=== PATIENT | male | born 1975 | race Caucasian/White ===

== ENCOUNTER → 2017-02-05 | Outpatient (CLI) | payer SELFPAY ==
--- NOTE | 2017-02-06 07:55 | XR ---
EXAMINATION TYPE: XR cervical spine comp DATE OF EXAM: 02/05/2017 3:58 PM TECHNIQUE: Frontal, lateral, oblique, and open mouth view of the cervical spine are obtained. HISTORY: [id number] LBP,fall,cervicalgia tingling down arms after fall injury 2 weeks ago pe r patient. COMPARISON: None FINDINGS: The cervical spine is visualized in its entirety from C1 thru the top of T1 level, it is s traightened in alignment without evidence of acute fracture or dislocation. There is slight grade 1 retrolisthesis of C4 on C5 and more prominent right 1 retrolisthesis C5 on C6. The pre-vertebral soft tissue appears within normal limits. The C1-C2 articulation is within normal limits on the open ginger th view. Vertebral body heights are maintained. There is moderate disc space narrowing C2-C3 level. There is m ild to moderate disc space narrowing with mild spurring C5-C6 level. Mild disc space narrowing C6-C7 level is seen. The oblique images are within normal limits. Some calcification left mid neck is felt to reflect mild carotid bulb atherosclerotic change. IMPRESSION: Straightening of cervical spine with multilevel spondylolisthesis mid cervical levels and multilevel degenerative changes as detailed above.
--- NOTE | 2017-02-06 07:57 | XR ---
EXAMINATION TYPE: XR lumbosacral spine min 4V DATE OF EXAM: 02/05/2017 3:58 PM CLINICAL HISTORY: Low back pain down legs after fall injury 2 weeks ago. TECHNIQUE: Frontal, lateral, and oblique images of the lumbar spine are obtained. COMPARISON: Lumbar spine x-ray April 16, 2013. FINDINGS: There are 5 lumbar type vertebral bodies identified. There is redemonstration of single p ars defect right L5 level. There is stable slight grade 1 retrolisthesis of L4 on L5. The lumbar spin e shows satisfactory alignment without evidence of acute fracture or dislocation. Vertebral body heig hts and disk space heights are within normal limits. There is redemonstration of spina bifida defect s L5 level. There is redemonstration of mild spurring anteriorly involving superior L4 and L5 endplat es most prominent L3 endplate. The oblique images appear within normal limits. Some vascular calcific ation overlying abdominal aorta is redemonstrated. IMPRESSION: Pars defect with stable slight grade 1 retrolisthesis L4-L5 redemonstrated. Other finding s as noted above. No significant change from prior.
== END | disposition home or self-care (01) ==
LOC: RADXRYALE 15:34
PROVIDERS: ATTEND Family Medicine
DX: M43.8X2 Other specified deforming dorsopathies, cervical region (principal); M50.31 Other cervical disc degeneration, high cervical region
CPT/HCPCS: 72050; 72110

== ENCOUNTER → 2018-06-17 | Outpatient (CLI) | payer OTHER ==
--- NOTE | 2018-06-17 09:31 | XR ---
EXAMINATION TYPE: XR elbow complete LT DATE OF EXAM: 06/17/2018 CLINICAL HISTORY: pain TECHNIQUE: Frontal, lateral and oblique images of the left elbow are obtained. COMPARISON: None. FINDINGS: There is no acute fracture/dislocation evident of the elbow. No abnormal fat pad signs ar e seen. The overlying soft tissue appears unremarkable. IMPRESSION: There is no acute fracture or dislocation of the elbow. ICD 10 NO FRACTURE, INITIAL EVALUATION
== END | disposition home or self-care (01) ==
LOC: RADXRYALE 08:35
PROVIDERS: ATTEND Family Medicine
DX: M25.522 Pain in left elbow (principal)

== ENCOUNTER → 2019-11-21 | Outpatient (CLI) | payer OTHER ==
--- NOTE | 2019-11-21 13:49 | CT ---
EXAMINATION TYPE: CT chest wo con DATE OF EXAM: 11/21/2019 COMPARISON: None HISTORY: difficulty breathing, wheezing CT DLP: 503.4 mGycm, Automated exposure control for dose reduction was used. CONTRAST: Performed injected with 0 mL of Isovue 300. TECHNIQUE: Axial images were obtained at 5 mm thick sections. Reconstructed images are reviewed on [employer] computer in the coronal plane. FINDINGS: Portion of the thyroid visualized is normal. No suspicious lung nodules or focal infiltrates are present. No enlarged mediastinal or hilar adenopathy is evident. The ascending aorta diameter at the level o f the main pulmonary artery is 3.6 cm. The main pulmonary artery diameter at the bifurcation is 2.5 cm. Minimal coronary artery calcifications present. Limited CT sections are obtained through the upper abdomen. Abdomen is essentially unremarkable. IMPRESSIONS: 1. No acute pulmonary process.
== END | disposition home or self-care (01) ==
LOC: RADCTMAIN 13:00
PROVIDERS: ATTEND Family Medicine
DX: R91.8 Other nonspecific abnormal finding of lung field (principal); R06.02 Shortness of breath; R06.2 Wheezing
CPT/HCPCS: 71250

== ENCOUNTER → 2021-07-11 | Outpatient (CLI) | payer BC ==
--- NOTE | 2021-07-11 18:24 | XR ---
EXAMINATION TYPE: XR knee complete LT DATE OF EXAM: 07/11/2021 COMPARISON: None HISTORY: 46-year-old male [id number] LT KNEE PAIN TECHNIQUE: 3 views FINDINGS: No acute fracture, subluxation, or dislocation. There is a moderate knee joint effusion noted. Extens or mechanism appears intact. IMPRESSION: No acute osseous abnormality seen. However, there is a moderate knee joint effusion. If pain persists and concern for internal derangement, MRI can be performed.
== END | disposition home or self-care (01) ==
LOC: RADXRYALE 12:08
PROVIDERS: ATTEND Family Medicine
DX: M25.462 Effusion, left knee (principal)

== ENCOUNTER 2021-12-21 14:26 | Emergency (ER) | payer BC ==
[2021-12-21 14:30] VITALS: TEMP 97.6
[2021-12-21] MEDS ORDERED: MAG HYDROX/AL HYDROX/SIMETH 30 ML, HYOSCYAMINE ELIXIR 10 ML, LIDOCAINE VISCOUS 2% 10 ML PO STA ×3 (15:07)
--- NOTE | 2021-12-21 15:08 | ED ---
General Adult HPI - General Chief complaint: Chest Pain Stated complaint: abnormal EKG Time Seen by Provider: 12/21/21 14:46 Source: patient, family Mode of arrival: ambulatory Limitations: no limitations - History of Present Illness Initial comments: Dictation was produced using [employer] dictation software. please excuse any grammatical, word or spelling errors. Chief Complaint: 46-year-old male sent in from primary care doctor for chest pressure History of Present Illness: Patient is a 46-year-old male he has no significant past medical history. States that he is here for chest pressure. Patient states he had pain like this in the past from coated and reflux. Patient states his pain is mild. He went to go see his primary care doctor where he met one of the new mid-level provider's. The mid-level provider did an EKG and told that he needs to come to the emergency room for concerns of ischemia. Patient states the pain is non-rating. Not associated with diaphoresis or nausea. Patient states he's had a stress test that was negative in 2016. Patient denies any significant family history of heart conditions. The ROS documented in this emergency department record has been reviewed and confirmed by me. Those systems with pertinent positive or negative responses have been documented in the HPI. All other systems are other negative and/or noncontributory. PHYSICAL EXAM: General Impression: Alert and oriented x3, not in acute distress HEENT: Normocephalic atraumatic, extra-ocular movements intact, pupils equal and reactive to light bilaterally, mucous membranes moist. Cardiovascular: Heart regular rate and rhythm Chest: Able to complete full sentences, no retractions, no tachypnea Abdomen: abdomen soft, non-tender, non-distended, no organomegaly Musculoskeletal: Pulses present and equal in all extremities, no peripheral edema Motor: no focal deficits noted Neurological: CN II-XII grossly intact, no focal motor or sensory deficits noted Skin: Intact with no visualized rashes Psych: Normal affect and mood ED course: 46 Year-old well-appearing male presents emergency department for chest pressure. He was seen at PCPs office where he met a mid-level who told him that he had some abnormal EKG changes. Signs upon arrival are within acceptable limits. EKG from PCPs office was reviewed and look normal sinus without any ischemic findings. Clinical presentation consistent with atypical chest pain typical features. Surgical and are negative. Patient reevaluated bedside at 6:45 PM found to be in stable medical condition. Patient be discharged and advised follow-up with primary care doctor. At this point patient's symptoms likely secondary to reflux versus gastritis. However patient advised follow-up with primary care doctor for possible stress test. EKG interpretation: Ventricular rate 90, sinus rhythm, CA interval 137, QS 94, QTC 413. No CA prolongation, no QTC prolongation, no ST or T-wave changes noted. Overall, this EKG is unremarkable - Related Data Home Medications Medication Instructions Recorded Confirmed Albuterol Inhaler [Ventolin Hfa 2 puff INHALATION RT-Q4H PRN 12/21/21 12/21/21 Inhaler] allopurinoL [Zyloprim] 300 mg PO Q72H 12/21/21 12/21/21 Allergies Allergy/AdvReac Type Severity Reaction Status Date / Time No Known Allergies Allergy Verified 12/21/21 16:00 Review of Systems ROS Statement: Those systems with pertinent positive or pertinent negative responses have been documented in the HPI. ROS Other: All systems not noted in ROS Statement are negative. Past Medical History Past Medical History: Asthma, GERD/Reflux History of Any Multi-Drug Resistant Organisms: None Reported Past Surgical History: Tonsillectomy Past Psychological History: Anxiety Smoking Status: Never smoker Past Alcohol Use History: Daily Past Drug Use History: None Reported General Exam Limitations: no limitations Course Vital Signs 12/21/21 12/21/21 14:27 15:59 Temperature 97.6 F Pulse Rate 96 75 Respiratory 18 16 Rate Blood Pressure 141/95 139/88 O2 Sat by Pulse 97 96 Oximetry Medical Decision Making - Lab Data Result diagrams: 12/21/21 15:10 12/21/21 15:10 Lab Results 12/21/21 12/21/21 12/21/21 Range/Units 15:10 15:10 15:10 WBC 5.0 (3.8-10.6) k/uL RBC 4.98 (4.30-5.90) m/uL Hgb 15.1 (13.0-17.5) gm/dL Hct 43.3 (39.0-53.0) % MCV 86.9 (80.0-100.0) fL MCH 30.2 (25.0-35.0) pg MCHC 34.8 (31.0-37.0) g/dL RDW 13.3 (11.5-15.5) % Plt Count 228 (150-450) k/uL MPV 8.4 Neutrophils % 54 % Lymphocytes % 30 % Monocytes % 10 % Eosinophils % 2 % Basophils % 1 % Neutrophils # 2.7 (1.3-7.7) k/uL Lymphocytes # 1.5 (1.0-4.8) k/uL Monocytes # 0.5 (0-1.0) k/uL Eosinophils # 0.1 (0-0.7) k/uL Basophils # 0.1 (0-0.2) k/uL Sodium 138 (137-145) mmol/L Potassium 4.1 (3.5-5.1) mmol/L Chloride 106 (98-107) mmol/L Carbon Dioxide 25 (22-30) mmol/L Anion Gap 7 mmol/L BUN 21 H (9-20) mg/dL Creatinine 0.89 (0.66-1.25) mg/dL Est GFR (CKD-EPI)AfAm >90 (>60 ml/min/1.73 sqM) Est GFR (CKD-EPI)NonAf >90 (>60 ml/min/1.73 sqM) Glucose 96 (74-99) mg/dL Calcium 9.3 (8.4-10.2) mg/dL Troponin I <0.012 (0.000-0.034) ng/mL 12/21/21 Range/Units 18:12 WBC (3.8-10.6) k/uL RBC (4.30-5.90) m/uL Hgb (13.0-17.5) gm/dL Hct (39.0-53.0) % MCV (80.0-100.0) fL MCH (25.0-35.0) pg MCHC (31.0-37.0) g/dL RDW (11.5-15.5) % Plt Count (150-450) k/uL MPV Neutrophils % % Lymphocytes % % Monocytes % % Eosinophils % % Basophils % % Neutrophils # (1.3-7.7) k/uL Lymphocytes # (1.0-4.8) k/uL Monocytes # (0-1.0) k/uL Eosinophils # (0-0.7) k/uL Basophils # (0-0.2) k/uL Sodium (137-145) mmol/L Potassium (3.5-5.1) mmol/L Chloride (98-107) mmol/L Carbon Dioxide (22-30) mmol/L Anion Gap mmol/L BUN (9-20) mg/dL Creatinine (0.66-1.25) mg/dL Est GFR (CKD-EPI)AfAm (>60 ml/min/1.73 sqM) Est GFR (CKD-EPI)NonAf (>60 ml/min/1.73 sqM) Glucose (74-99) mg/dL Calcium (8.4-10.2) mg/dL Troponin I <0.012 (0.000-0.034) ng/mL Disposition Clinical Impression: Chest pain Disposition: HOME SELF-CARE Condition: Good Instructions (If sedation given, give patient instructions): Chest Pain (ED) Is patient prescribed a controlled substance at d/c from ED?: No Referrals: Maikel Mcmillan DO [Primary Care Provider] - 1-2 days
[2021-12-21 15:28] LABS: Basophils # (A) 0.1 k/uL (0-0.2); Basophils % (A) 1 %; Eosinophils # (A) 0.1 k/uL (0-0.7); Eosinophils % (A) 2 %; HCT 43.3 % (39.0-53.0); HGB 15.1 gm/dL (13.0-17.5); Lymphocytes # (A) 1.5 k/uL (1.0-4.8); Lymphocytes % (A) 30 %; MCH 30.2 pg (25.0-35.0); MCHC 34.8 g/dL (31.0-37.0); MCV 86.9 fL (80.0-100.0); Mean Platelet Volume 8.4; Monocytes # (A) 0.5 k/uL (0-1.0); Monocytes % (A) 10 %; Neutrophils # (A) 2.7 k/uL (1.3-7.7); Neutrophils % (A) 54 %; Platelet Count 228 k/uL (150-450); RBC 4.98 m/uL (4.30-5.90); RDW 13.3 % (11.5-15.5)
[2021-12-21 15:29] LABS: Sodium 138 mmol/L (137-145)
[2021-12-21 15:31] LABS: African American GFR (CKD) >90 (>60 ml/min/1.73 sqM); Anion Gap 7 mmol/L; Blood Urea Nitrogen 21 mg/dL (9-20); Calcium 9.3 mg/dL (8.4-10.2); Carbon Dioxide 25 mmol/L (22-30); Chloride 106 mmol/L (98-107); Glucose 96 mg/dL (74-99); Non-African American GFR(CKD) >90 (>60 ml/min/1.73 sqM); Potassium 4.1 mmol/L (3.5-5.1)
[2021-12-21 16:01] VITALS: RESP 16
[2021-12-21] MEDS ORDERED: ASPIRIN 81 MG PO STA (18:48)
[2021-12-21 19:06] VITALS: BP 136/84; PULSE 78
== END 2021-12-21 19:06 | disposition home or self-care (01) ==
LOC: EC 14:26
DX: R07.9 Chest pain, unspecified (principal); J45.909 Unspecified asthma, uncomplicated; K21.9 Gastro-esophageal reflux disease without esophagitis; Z79.51 Long term (current) use of inhaled steroids; Z79.899 Other long term (current) drug therapy
CPT/HCPCS: 36415; 80048; 84484; 85025; 99285

== ENCOUNTER 2024-12-02 09:27 | Day surgery (SDC) | payer BC ==
[2024-12-02] MEDS: IV FLUID CONTINUATION 1,000 ML IV ONE (10:15)
[2024-12-02 10:30] VITALS: RESP 16; TEMP 97.4
[2024-12-02] MEDS: LACTATED RINGERS 1,000 ML IV SCH (10:30)
[2024-12-02] MEDS ORDERED: PROPOFOL 10 MG/ML 20 ML VIAL IV ONE (10:47)
[2024-12-02] MEDS ORDERED: LIDOCAINE 1% INJ 10MG/ML (20 ML MDV) ONE (10:47)
--- NOTE | 2024-12-02 11:08 | P.PCN ---
Date of Procedure: 12/02/24 Procedure(s) Performed: BRIEF HISTORY: Patient is a 49-year-old pleasant white male scheduled for an elective colonoscopy as a part of screening for colon cancer. PROCEDURE PERFORMED: Colonoscopy with snare polypectomy. PREOPERATIVE DIAGNOSIS: Screening for colon cancer. IV sedation per Anesthesia. PROCEDURE: After informed consent was obtained, the patient, was brought into the endoscopy unit. IV sedation was administered by Anesthesia under continuous monitoring. Digital rectal examination was normal. Initially the Olympus CF-160 flexible video colonoscope was then inserted in the rectum, gradually advanced into the cecum without any difficulty. Careful examination was performed as the scope was gradually being withdrawn. Ileocecal valve and the appendiceal orifice were visualized and appeared normal. Prep was excellent. Mucosa of the cecum millimeter and 1 cm broad-based polyp removed by snare polypectomy. Rest of the, ascending colon, transverse colon, descending colon, sigmoid colon, and rectum appeared normal. Distal rectum there was a 5 mm polyp removed by cold snare polypectomy. Scattered sigmoid diverticulosis seen. Retroflexion was performed in the rectum and no lesions were seen. The patient tolerated the procedure well. IMPRESSION: 3 mm and 1 cm cecal polyp status post snare polypectomy 5 mm rectal polyp status post snare polypectomy Scattered sigmoid diverticulosis. RECOMMENDATIONS: Findings of this examination were discussed with the patient as well as her family. He was advised to follow-up with the biopsy results. If the biopsy reveals adenoma he can have repeat colonoscopy in 3 years..
[2024-12-02 11:31] VITALS: BP 139/74; PULSE 63
== END 2024-12-02 11:42 | disposition home or self-care (01) ==
LOC: ORWHC2ENDO 09:27
PROVIDERS: ATTEND Internal Medicine Gastroenterology
DX: Z12.11 Encounter for screening for malignant neoplasm of colon (principal); K57.30 Diverticulosis of large intestine without perforation or abscess without bleeding; D12.0 Benign neoplasm of cecum; K62.1 Rectal polyp
CPT/HCPCS: 88305; 45385; J2003; J2704

== ENCOUNTER → 2025-03-23 | Outpatient (CLI) | payer BC ==
--- NOTE | 2025-03-23 11:57 | XR ---
EXAMINATION TYPE: XR shoulder complete RT DATE OF EXAM: 03/23/2025 11:30 AM COMPARISON: None CLINICAL INDICATION: Male, 49 years old with history of [id number] RT SHLD PAIN; [facility], pain TECHNIQUE: XR shoulder complete RT; examined in AP, internally rotated and scapular Y projections. FINDINGS: No evidence of acute osseous pathology, joint dislocation, or soft tissue swelling. The remaining po rtions of the visualized chest are unremarkable. Mild degeneration changes of the acromion and dista l clavicle. IMPRESSION: 1. No acute osseous pathology. 2. Mild shoulder osteoarthrosis. [facility], , 03/23/2025 11:55 AM
== END | disposition home or self-care (01) ==
LOC: RADXRYALE 11:09
PROVIDERS: ATTEND Physician Assistant Medical
DX: M19.011 Primary osteoarthritis, right shoulder (principal)